=== PATIENT | male | born 2000 | race Hispanic/Latino ===

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

== ENCOUNTER 2021-06-08 16:23 | Emergency (ER) | payer SELFPAY ==
--- OUTSIDE RECORDS SUMMARY | 2021-06-08 16:26 | XMS REPORT | Continuity of Care Document ---
:2000 Author Organization [facility] t Address [address] [place] [address] Care Team Providers Name Role Phone HALINA Attending Clinician Unavailable Lab, Fam Pob I Attending Clinician Unavailable Halina ALEJANDRA Attending Clinician Pranay VALENTINE S Attending Clinician Unavailable Pcp, Does Not Have A Attending Clinician Juanito SALEH Attending Clinician Problems This patient has no known problems. Allergies, Adverse Reactions, Alerts Allergy Allergy Status Severity Reaction(s) Onset Inactive Treating Comm ents Source Name Type Date Date Clinician NO KNOWN Drug Active [facility] Social History Social Habit Start Date Stop Date Quantity Comments Source Exposure to Not sure [facility] SARS-CoV-2 (event) [facility] Sex Assigned At [birth year] [facility] 00:00:00 00:00:00 [facility] Smoking Status Start Date Stop Date Source Unknown if ever smoked [facility] Medications This patient has no known medications. Procedures This patient has no known procedures. Encounters Start End Encounter Admission Attending Care Care Encounter Source Date/Time Date/Time Type Type Clinicians Facility Department ID 2021-02-06 2021-02-06 Outpatient R [facility] [id number] Univers 20:00:00 20:00:00 [id number] [facility] 2021-02-06 2021-02-06 Outpatient R HALINA [facility] [id number] [facility] 20:00:00 20:00:00 JOSEY [facility] 2021-02-06 2021-02-06 Laboratory Lab, Adc Fam Pob I [facility] [id number]. [id number] Univers 15:03:48 15:36:08 Only Josey Elizondo [employer] Private [id number] ity of [place] [id number] [place] Professio [phone] [place] dical nal [address] 2020-01-05 2020-01-05 Telephone Pranay POORNIMA [id number] Univers 00:00:00 00:00:00 Lewis S KYE [id number] it y of HOSPITAL [id number] [place] as [id number] [address] 2020-01-05 2020-01-05 Telephone POORN[place]A [place] [id number] Univers 00:00:00 00:00:00 Patient KYE [id number] it y of Does Not HOSPITAL [id number] [place] [id number] [address] 2020-01-03 2020-01-03 Laboratory Lab, Adc Fam Pob I [facility] 1.2. [id number] Univers 14:47:27 15:07:27 Only Ulysses Solomon [employer] Private [id number] ity [place] [id number] [place] Professio [phone] [place] dical nal [address] 2020-01-03 2020-01-03 Outpatient R [facility] [id number] Univers 14:40:00 14:40:00 ity of [facility] Results This patient has no known results.
--- NOTE | 2021-06-08 17:09 | ER ---
Nurse's Notes [facility] Name: Waldo Valle Age: 21 yrs Sex: Male : 2000 Arrival Date: 06/08/2021 Time: 16:24 Bed Waiting Private MD: Diagnosis: Person with feared health complaint in whom no diagnosis is made Presentation: 06/08 16:55 Chief complaint: Patient states: around 3am; I took 2 500mg Tylenol pm and then 2 more jh5 about 3pm and I read the bottle and it said not to take 4 in more than 24 hours and I have really bad anxiety and I'm worried about OD and that if i go to sleep i wont wake up. Coronavirus screen: Vaccine status: Patient reports being unvaccinated. Client denies travel out of the [place] in the last 14 days. Ebola Screen: Patient negative for fever greater than or equal to 101.5 degrees Fahrenheit, and additional compatible Ebola Virus Disease symptoms Patient denies exposure to infectious person. Patient denies travel to an Ebola-affected area in the 21 days before illness onset. Initial Sepsis Screen: Does the patient meet any 2 criteria? No. Patient's initial sepsis screen is negative. Does the patient have a suspected source of infection? No. Patient's initial sepsis screen is negative. Risk Assessment: Do you want to hurt yourself or someone else? Patient reports no desire to harm self or others. Onset of symptoms. 16:55 Method Of Arrival: Ambulatory [facility] 16:55 Acuity: SHEKHAR 4 jh5 Triage Assessment: 17:04 General: Appears in no apparent distress. uncomfortable, well groomed, well developed, jh5 well nourished, Behavior is calm, anxious. Pain: Denies pain. GI: Reports. Historical: - Allergies: 17:03 NKA; jh5 - PMHx: 17:03 Anxiety; jh5 - Immunization history:: Adult Immunizations up to date. - Social history:: Smoking status: Patient denies any tobacco usage or history of. Screenin:05 Abuse screen: Denies threats or abuse. Denies injuries from another. Nutritional 5 screening: No deficits noted. Tuberculosis screening: No symptoms or risk factors identified. Fall Risk None identified. Assessment: 17:06 GI: 5 Vital Signs: 16:55 BP 153 / 49; Pulse 74; Resp 17; Temp 98.2; Pulse Ox 99% ; 5 ED Course: 16:24 Patient arrived in ED. ds1 17:03 Triage completed. 5 17:05 Arm band placed on left wrist. 5 17:06 Patient has correct armband on for positive identification. 5 17:06 No provider procedures requiring assistance completed. Patient did not have IV access [facility] during this emergency room visit. 17:07 E[facility] Mathew [facility]C is [facility] kb 17:08 Seda Jarvis MD is Attending Physician. kb Administered Medications: No medications were administered Outcome: 17:06 Discharged to home ambulatory, with friend. jh5 17:06 Condition: good 17:06 Discharge instructions given to patient, Instructed on discharge instructions. 17:08 Discharge ordered by . kb 17:14 Patient left the ED. [facility] Signatures: Ena Mathew FNP-C FNP-Nydia Araiza ds1 Nora Hastings RN RN 5 Corrections: (The following items were deleted from the chart) 17:04 17:03 PMHx: chest pain; [place] [id number]
[2021-06-08 17:33] VITALS: BP 153/49; TEMP 98.2; O2SAT 99
--- NOTE | 2021-06-09 17:14 | EDPHYS ---
Physician Documentation [facility] Name: Waldo Valle Age: 21 yrs Sex: Male : 2000 Arrival Date: 06/08/2021 Time: 16:24 Bed Waiting Private MD: ED Physician Seda Jarvis HPI: 06/08 17:17 This 21 yrs old Male presents to ER via Ambulatory with complaints of Drowsy, kb Nausea. 17:17 Pt states he took 2 Tylenol PM at 0300 and 2 again at 1500. States he read the bottle kb and is afraid he took too much. Reports drowsiness now. States "I have bad anxiety and once I started thinking about it I was worried that if I went to sleep I wouldn't wake up so I came here.". Onset: The symptoms/episode began/occurred today. Severity of symptoms: At their worst the symptoms were mild in the emergency department the symptoms are unchanged. The patient has not experienced similar symptoms in the past. The patient has not recently seen a physician. Historical: - Allergies: 17:03 NKA; jh5 - PMHx: 17:03 Anxiety; 5 - Immunization history:: Adult Immunizations up to date. - Social history:: Smoking status: Patient denies any tobacco usage or history of. ROS: 17:16 Constitutional: Negative for fever, chills, and weight loss. kb 17:16 Constitutional: Positive for fatigue. 17:16 Psych: Positive for anxiety. 17:16 All other systems are negative. Exam: 17:16 Constitutional: This is a well developed, well nourished patient who is awake, alert, kb and in no acute distress. Head/Face: Normocephalic, atraumatic. ENT: Moist Mucous membranes Respiratory: Respirations even and unlabored. No increased work of breathing. Talking in full sentences Skin: Warm, dry with normal turgor. Normal color. MS/ Extremity: Pulses equal, no cyanosis. Neurovascular intact. Full, normal range of motion. Neuro: Awake and alert, GCS 15, oriented to person, place, time, and situation. Moves all extremities. Normal gait. 17:16 Constitutional: The patient appears anxious. 17:16 Psych: Behavior/mood is pleasant, cooperative, anxious. Vital Signs: 16:55 BP 153 / 49; Pulse 74; Resp 17; Temp 98.2; Pulse Ox 99% ; [facility] MDM: 17:08 Patient medically screened. kb 17:16 Data reviewed: vital signs, nurses notes. Data interpreted: Pulse oximetry: on room air kb is 99 %. Interpretation: normal. Counseling: I had a detailed discussion with the patient and/or guardian regarding: the historical points, exam findings, and any diagnostic results supporting the discharge/admit diagnosis, the need for outpatient follow up, a family practitioner, to return to the emergency department if symptoms worsen or persist or if there are any questions or concerns that arise at home. Administered Medications: No medications were administered Disposition: 22:36 Co-signature as Attending Physician, Seda Jarvis MD I agree with the assessment and sp3 plan of care. Disposition Summary: 06/08/21 17:08 Discharge Ordered Location: Home kb Condition: Stable kb Diagnosis - Person with feared health complaint in whom no diagnosis is made kb Followup: kb - With: Emergency Department - When: As needed - Reason: Worsening of condition Followup: kb - With: Private Physician - When: 2 - 3 days - Reason: Recheck today's complaints, Continuance of care, Re-evaluation by your physician Discharge Instructions: - Discharge Summary Sheet kb - Panic Attack, Kyyg-vs-Xdps kb Forms: - Medication Reconciliation Form kb - Thank You Letter kb - Antibiotic Education kb - Prescription Opioid Use kb - Work release form 5 Signatures: Ena Mathew FNP-C [employer]-Seda Archuleta MD MD sp3 Nora Hastings RN RN 5 Corrections: (The following items were deleted from the chart) 17:04 17:03 PMHx: chest pain; [place] [id number]
== END 2021-06-08 17:14 | disposition home or self-care (01) ==
LOC: ER 16:23
DX: Z71.1 Person with feared health complaint in whom no diagnosis is made (principal)
CPT/HCPCS: 99281